=== PATIENT | female | born 1965 | race Caucasian/White ===

== ENCOUNTER 2016-10-18 08:54 | Inpatient (IN) | payer BC ==
[2016-10-10 11:46] LABS: ADD SCAN DIFF NO
[2016-10-10 12:03] LABS: ALBUMIN 4.3 g/dl (3.3-4.9)
[2016-10-10 12:04] LABS: POTASSIUM 4.7 mmol/L (3.5-5.1)
[2016-10-10 12:06] LABS: ALBUMIN/GLOBULIN RATIO 1.53; BILIRUBIN,INDIRECT 0.2 mg/dl (0-1.1); BILIRUBIN,TOTAL 0.2 mg/dl (0.2-1.3); TOTAL PROTEIN 7.1 g/dl (6.1-8.1)
[2016-10-10 12:07] LABS: ADD UMIC YES; URINE BILIRUBIN (Dip) NEGATIVE (NEGATIVE); URINE BLOOD (Dip) TRACE (NEGATIVE); URINE COLOR LT. YELLOW (YELLOW); URINE GLUCOSE (Dip) NEGATIVE (NEGATIVE); URINE KETONES (Dip) NEGATIVE (NEGATIVE); URINE LEUKOCYTE ESTERASE (Dip) TRACE (NEGATIVE); URINE NITRITE (Dip) NEGATIVE (NEGATIVE); URINE TOTAL PROTEIN (Dip) NEGATIVE (NEGATIVE); URINE UROBILINOGEN (Dip) 0.2 E.U./dL (0.1-1.0)
[2016-10-10 12:10] LABS: BASOPHIL # 0.1 10^3/ul (0.0-0.1); BASOPHILS % 1.3 % (0.0-2.0); EOSINOPHILS % 0.7 % (0.0-7.0); HEMATOCRIT 38.8 % (37.0-47.0); HEMOGLOBIN 12.6 g/dl (12.0-16.0); LYMPHOCYTES # 1.7 10^3/ul (0.8-2.9); LYMPHOCYTES % 31.1 % (15.0-51.0); MEAN CORPUSCULAR HEMOGLOBIN 29.9 pg (29.0-33.0); MEAN CORPUSCULAR HGB CONC 32.5 g/dl (32.0-37.0); MEAN CORPUSCULAR VOLUME 92.2 fl (82.0-101.0); MEAN PLATELET VOLUME 11.2 fl (7.4-10.4); MONOCYTE # 0.5 10^3/ul (0.3-0.9); MONOCYTES % 9.7 % (0.0-11.0); NEUTROPHIL # 3.1 10^3/ul (1.6-7.5); PLATELET COUNT 264 10^3/UL (140-415); RED BLOOD COUNT 4.21 10^6/ul (4.20-5.40); RED CELL DISTRIBUTION WIDTH 15.9 % (11.5-14.5); WHITE BLOOD COUNT 5.4 10^3/ul (4.8-10.8)
--- NOTE | 2016-10-10 12:11 | RADRPT ---
PROCEDURE: Chest x-ray CLINICAL INDICATION: Preop TECHNIQUE: Chest single view COMPARISON: None FINDINGS: The heart is normal in size. The pulmonary vessels are normal in caliber. The lungs are clear. Th e costophrenic angles are sharp. The visualized bony thorax is unremarkable. IMPRESSION: No acute cardiopulmonary disease. RPTAT: HH .Santos Ramirez MD, Date Time Electronically viewed and signed by .Santos Ramirez MD, MD on 10/10/2016 12:10 .W/
[2016-10-10 12:13] LABS: CALCIUM 9.2 mg/dl (8.4-10.2); CREATININE 0.73 mg/dl (0.44-1.00)
[2016-10-10 12:17] LABS: INR 0.96; PARTIAL THROMBOPLASTIN TIME 30.4 Sec (25.0-35.0); PROTIME 12.8 Sec (12.2-14.2)
[2016-10-10 12:49] LABS: SQUAMOUS EPITHELIAL CELL,UR FEW; URINE RBCS 0-2 /HPF (0)
--- NOTE | 2016-10-11 19:17 | RADRPT ---
Vent Rate: 50 bpm RR Interval: 0 msec NE Interval: 136 msec QRS Duration: 84 msec QT Interval: 426 msec QTC Interval: 388 msec P-R-T [place]: 62 - -5 - 63 degrees Sinus bradycardia Low voltage QRS Cannot rule out Anterior infarct , age undetermined Abnormal ECG Electronically Signed By: Jonh Tim [id number]
[2016-10-17 12:19] VITALS: BMI 22.3
[2016-10-18] VITALS (51 sets, daily range): BP systolic 81–138; BP diastolic 39–81; PULSE 54–78; RESP 11–41; Ht 162.6 cm; Wt 56.0 kg
[~2016-10-18] VITALS: Ht 162.6 cm; Wt 56.0 kg
[~2016-10-18 08:54] MED LIST: CEFAZOLIN 1 GM INJ ONE; ROCURONIUM 50 MG INJ ONE; SEVOFLURANE 15 MIN ONE
[2016-10-18] MEDS ORDERED: FENTAnyl 50 MCG/ML VIAL ONE (12:31)
[2016-10-18] MEDS ORDERED: MIDAZOLAM 1 MG/ML 2 ML INJ ONE (12:32)
--- NOTE | 2016-10-18 13:03 | HP ---
DATE OF ADMISSION: 10/18/2016 10/18/2016 HISTORY OF PRESENT ILLNESS: This is a 51-year-old female, 6 , para 5, with last menstrual period of 09/01/2016 admitted to [facility] with the chief complaint of lower abdominal, pelvic pressure, vaginal pressure, sensation of protruding mass through the vagina also at times loss of urine during exercise. coughing or other activities, being admitted to undergo a cystocele rectocele repair. Perineorrhaphy due to relaxed outlet and large cystocele and rectocele. She would undergo a rectocele repair as well. The entire procedure has been discussed with the patient and complication that may arise from this procedure, including bowel or bladder injury and she would like to proceed with the operation. This patient has been coming to [facility] as of 12/2010 and her last visit to the office has been on 08/2016 for the above-mentioned problems that brought the patient to the office for treatment. [employer] HISTORY: 6, para 5. Denies any other surgery or hospitalization. REVIEW OF SYSTEMS: Within normal. PHYSICAL EXAMINATION: VITAL SIGNS: 5 feet 3 inches, 126 pounds with a blood pressure of 102/76, pulse of 70, respiration of 20 and temperature 98.6. HEAD, EARS, NOSE AND THROAT: Negative. NECK: Supple. No thyromegaly. LUNGS: Clear to P and A. HEART: Normal sinus rhythm. No murmur. BREASTS: Bilateral breast implants (4 years ago) and the patient had no mammogram during the past 4 years, but there are no abnormal palpable mass in either breast. No skin changes except the scar of the surgery. No nipple discharge. No axillary adenopathy. ABDOMEN: Flat. No organomegaly. PELVIC: Relaxed vaginal outlet, moderate cystocele. Very large rectocele. Cervix multiparous. Uterus measures 8 x 6 x 4 cm. Adnexa not palpable. IMPRESSION: 1. Stress incontinence. 2 Pelvic and lower abdominal pressure. 3. Constipation. 4. Rectal pressure. 5. Moderate cystocele, large rectocele. PLAN: Repair of the cystocele and rectocele with [place] sphincter plication. The complication of the surgery has been discussed with the patient including bowel or bladder injury, possibility to be discharged with indwelling catheter , The other complication that may arise from this surgery is urinary tract infection, patient completely understood the complication of the procedure. All of her questions were answered and she has signed the consent for the above- mentioned surgery. Dictated By: HERRERA MURILLO/MARLON Conf#: [id number] DID#: [id number] MTDD
[2016-10-18] MEDS ORDERED: LIDOCAINE 2% (SDV) 5 ML INJ ONE (13:04)
[2016-10-18] MEDS ORDERED: SUCCINYLCHOLINE CHLORIDE 100 MG/5 ML SYG IV ONE (13:04)
[2016-10-18] MEDS ORDERED: PROPOFOL 20 ML ONE (13:04)
[2016-10-18] MEDS ORDERED: ONDANSETRON 4 MG INJ ONE (13:13)
[2016-10-18] MEDS ORDERED: EPHEDrine SULFATE 50 MG/5 ML SYG ONE (13:13)
[2016-10-18] MEDS ORDERED: DEXAMETHASONE 4 MG/ML 1 ML INJ ONE (13:14)
[2016-10-18] MEDS ORDERED: FAMOTIDINE 20 MG INJ ONE (13:14)
[2016-10-18] MEDS ORDERED: VASOPRESSIN 20 UNITS INJ ONE (13:27)
[2016-10-18] MEDS ORDERED: SODIUM CL BACTERIOSTATIC 30 ML INJ ONE (13:27)
[2016-10-18] MEDS ORDERED: HYDROmorphONE (0.2 MG/ML) 10ML SYG IV PRN ×3 (14:00)
[2016-10-18] MEDS ORDERED: FENTAnyl 50 MCG/ML VIAL IV PRN ×3 (14:00)
[2016-10-18] MEDS ORDERED: DIPHENHYDRAMINE 50 MG INJ IV PRN (14:00)
[2016-10-18] MEDS ORDERED: PROCHLORPERAZINE 10 MG INJ IV PRN (14:00)
[2016-10-18] MEDS ORDERED: ONDANSETRON 4 MG INJ IV PRN (14:00)
[2016-10-18] MEDS ORDERED: MEPERIDINE 25 MG INJ IV PRN (14:00)
[2016-10-18] MEDS ORDERED: NEOSTIGMINE 3 MG/3 ML SYRINGE ONE (14:05)
[2016-10-18] MEDS ORDERED: GLYCOPYRROLATE 0.4 MG INJ ONE (14:05)
[2016-10-18] MEDS ORDERED: HYDROmorphONE 2 MG/ML SYG ONE (14:05)
[2016-10-18] MEDS: IBUPROFEN 600 MG TAB PO SCH (18:00)
[2016-10-18] MEDS ORDERED: METOCLOPRAMIDE 10 MG INJ ONE (18:11)
[2016-10-18] MEDS ORDERED: HYDROmorphONE (0.2 MG/ML) 10ML SYG IV ONE (18:11)
[2016-10-18] MEDS ORDERED: METOCLOPRAMIDE 10 MG INJ IV PRN (18:30)
--- NOTE | 2016-10-18 20:16 | OPR ---
DATE OF OPERATION: PREOPERATIVE DIAGNOSES: Stress incontinence, moderate sized cystocele, large rectocele, relaxed vaginal outlet. POSTOPERATIVE DIAGNOSES: Stress incontinence, moderate sized cystocele, large rectocele, relaxed vaginal outlet. OPERATION PERFORMED: Cystocele and rectocele repair , perineorrhaphy SURGEON: Herrera Schwartz MD ANESTHESIA: General. ANESTHESIOLOGIST: ____ DETAILS OF THE PROCEDURE: Under satisfactory general anesthesia, the patient was prepped and draped and placed in lithotomy position. Bimanual pelvic examination revealed relaxed vaginal outlet, moderate to large cystocele, large rectocele with normal size uterus and not palpable adnexal masses. Weighted speculum introduced into the vagina. Anterior vaginal mucosa incised in the midline 1 cm below the urethra in the junction of the anterior vaginal mucosa to the cervix. Procedure for urethral plication done by placing 1 single 2-0 chromic catgut suture at the vesicourethral junction. Vesicovaginal mucosa developed on both sides of the midline. Cystocele reduced with pursestring 2-0 chromic catgut suture. Vesicovaginal fascia approximated and repaired with interrupted 2-0 chromic catgut. Excess vaginal mucosa was trimmed and anterior vaginal mucosa closed with interrupted 2-0 chromic catgut. For posterior repair , a transverse incision was made on the mucocutaneous junction of the perineum. Posterior vaginal mucosa incised in the midline to the dome of the rectocele. Rectovaginal fascia was developed on both sides. Rectocele reduced with pursestring 2-0 chromic catgut suture. Excess vaginal mucosa trimmed and posterior vaginal mucosa approximated and repaired with interrupted 2-0 chromic catgut. At the level of the perineum, levator ani approximated with 2 interrupted chromic catgut suture. Superficial perineal muscle approximated with 2 interrupted 0 chromic catgut and the perineal skin was closed with interrupted 4-0 chromic catgut. At the end of the procedure, Mills catheter # 18 was placed in the bladder and vagina packed with Xeroform packing. ESTIMATED BLOOD LOSS: 50 mL. The patient tolerated procedure well and transferred to recovery room in a good condition. Dictated By: HERRERA MURILLO/MARLON Conf#: [id number] DID#: [id number] [facility]
[2016-10-18] MEDS: OXYCODONE/ACETAMINOPHEN (5/325) TAB PO PRN (22:14)
[2016-10-19] VITALS: BP 82/48; PULSE 61; RESP 16
[2016-10-19] MEDS ORDERED: ONDANSETRON INJ 8 MG in DEXTROSE 5% 50 ML IV PRN ×2
[2016-10-19 01:00] VITALS: BP 85/52; PULSE 60; RESP 16
[2016-10-19 02:00] VITALS: BP 87/52; PULSE 57; RESP 16
[2016-10-19] MEDS: LACTATED RINGER'S 1,000 ML IV SCH ×4 (02:47→22:33)
[2016-10-19] MEDS: morphine 4 MG/ML VIAL IV PRN ×3 (02:48→12:53)
[2016-10-19 04:00] VITALS: BP 81/50; PULSE 55; RESP 16
[2016-10-19] MEDS: IBUPROFEN 600 MG TAB PO SCH ×4 (06:00→18:00)
[2016-10-19] MEDS ORDERED: CEFAZOLIN 2 GM/50 ML (PMX) 50 ML IVPB SCH (07:00)
[2016-10-19] MEDS: OXYCODONE/ACETAMINOPHEN (5/325) TAB PO PRN ×3 (08:35→21:08)
[2016-10-19 09:18] VITALS: BP 81/51; RESP 17
[2016-10-19] MEDS ORDERED: ONDANSETRON 4 MG INJ IV PRN (14:30)
[2016-10-19] MEDS ORDERED: INFLUENZA VIRUS VACCINE 0.5 ML SYG IM* ONE (15:00)
--- NOTE | 2016-10-19 19:08 | PN ---
Date/Time of Note Date/Time of Note DATE: 10/19/16 TIME: 19:05 OB Subjective Subjective Subjective Postop day 1 Afebrile vital signs are stable, resting in bed in no discomfort at the satisfied with pain medication, vaginal packing removal, Mills in place ambulation recommended Current Medications Medications (Trade) Dose Ordered Sig/Francheska Route PRN Reason Start Time Stop Time Status Last Admin Dose Admin Fentanyl (Sublimaze) 100 mcg STK-MED ONCE .ROUTE 10/18/16 12:31 10/18/16 12:32 DC Midazolam HCl 2 mg 2 mg STK-MED ONCE .ROUTE 10/18/16 12:32 10/18/16 12:33 DC Propofol (Diprivan) 20 ml @ ud STK-MED ONCE .ROUTE 10/18/16 13:04 10/18/16 13:05 DC Succinylcholine Chloride (Anectine Syringe) 100 mg STK-MED ONCE IV 10/18/16 13:04 10/18/16 13:05 DC Lidocaine (Xylocaine 2% (Sdv)) 100 mg STK-MED ONCE .ROUTE 10/18/16 13:04 10/18/16 13:05 DC Ephedrine Sulfate 50 mg STK-MED ONCE .ROUTE 10/18/16 13:13 10/18/16 13:14 DC Ondansetron HCl (Zofran Inj) 4 mg STK-MED ONCE .ROUTE 10/18/16 13:13 10/18/16 13:14 DC Dexamethasone (Decadron) 4 mg STK-MED ONCE .ROUTE 10/18/16 13:14 10/18/16 13:15 DC Famotidine (Pepcid Iv) 20 mg STK-MED ONCE .ROUTE 10/18/16 13:14 10/18/16 13:15 DC Sodium Chloride (Sodium Cl Bacteriostatic) 90 ml STK-MED ONCE .ROUTE 10/18/16 13:27 10/18/16 13:28 DC 10/18/16 13:38 Vasopressin (Pitressin) 20 unit STK-MED ONCE .ROUTE 10/18/16 13:27 10/18/16 13:28 DC 10/18/16 13:37 Hydromorphone HCl (Dilaudid (Rec)) 0.2 mg PACU ORDER PRN IV MILD PAIN LEVEL 1-3 10/18/16 14:00 10/18/16 22:00 DC Hydromorphone HCl (Dilaudid (Rec)) 0.4 mg PACU ORDER PRN IV MODERATE PAIN LEVEL 4-6 10/18/16 14:00 10/18/16 22:00 DC 10/18/16 18:29 Hydromorphone HCl (Dilaudid (Rec)) 0.6 mg PACU ORDER PRN IV SEVERE PAIN LEVEL 7-10 10/18/16 14:00 10/18/16 22:00 DC Fentanyl (Sublimaze) 25 mcg PACU ORDER PRN IV MILD PAIN LEVEL 1-3 10/18/16 14:00 10/18/16 22:00 DC Fentanyl (Sublimaze) 50 mcg PACU ODER PRN IV MODERATE PAIN LEVEL 4-6 10/18/16 14:00 10/18/16 22:00 DC Fentanyl (Sublimaze) 75 mcg PACU ORDER PRN IV SEVERE PAIN LEVEL 7-10 10/18/16 14:00 10/18/16 22:00 DC Ondansetron HCl (Zofran Inj) 4 mg PACU ORDER PRN IV NAUSEA AND/OR VOMITING 10/18/16 14:00 10/18/16 22:00 DC 10/18/16 17:35 Prochlorperazine (Compazine Inj) 5 mg PACU ORDER PRN IV NAUSEA AND/OR VOMITING 10/18/16 14:00 10/18/16 22:00 DC Meperidine HCl (Demerol) 25 mg PACU ORDER PRN IV POST-OP RIGORS 10/18/16 14:00 10/18/16 22:00 DC Diphenhydramine HCl (Benadryl) 25 mg PACU ORDER PRN IV PRURITUS 10/18/16 14:00 10/18/16 22:00 DC Neostigmine Methylsulfate (Neostigmine) 3 mg STK-MED ONCE .ROUTE 10/18/16 14:05 10/18/16 14:06 DC Glycopyrrolate (Robinul) 0.4 mg STK-MED ONCE .ROUTE 10/18/16 14:05 10/18/16 14:06 DC Hydromorphone HCl 2 mg 2 mg STK-MED ONCE .ROUTE 10/18/16 14:05 10/18/16 14:06 DC Cefazolin Sodium/ Dextrose (Ancef 2 Gm/50 ml (Pmx)) 50 ml @ 100 mls/hr AC BREAKFAST IVPB 10/19/16 07:00 10/19/16 07:19 DC 10/19/16 06:41 Ibuprofen (Motrin) 600 mg Q6 PO 10/18/16 18:00 Oxycodone/ Acetaminophen (Percocet (5/ 325)) 1 tab Q3H PRN PO pain 10/18/16 15:30 10/19/16 16:48 Hydromorphone HCl (Dilaudid (Rec)) 2 mg STK-MED ONCE IV 10/18/16 18:11 10/18/16 18:12 DC Metoclopramide HCl (Reglan) 10 mg STK-MED ONCE .ROUTE 10/18/16 18:11 10/18/16 18:12 DC Metoclopramide HCl 10 mg 10 mg PACU ORDER PRN IV NAUSEA AND/OR VOMITING 10/18/16 18:30 10/18/16 22:00 DC 10/18/16 18:30 Ondansetron HCl/ Dextrose (Zofran Inj/D5W) 54 ml @ 108 mls/hr NOW PRN IV NAUSEA AND/OR VOMITING 10/19/16 00:00 10/20/16 00:00 10/19/16 00:36 Morphine Sulfate 3 mg 3 mg Q3H PRN IV PAIN 10/19/16 03:00 10/19/16 12:53 Lactated Ringer's (Lr) 1,000 ml @ 125 mls/hr Q8H IV 10/19/16 03:00 10/19/16 12:54 Influenza Virus Vaccine (Fluzone) 0.5 ml ONCE ONCE IM* 10/19/16 15:00 10/19/16 15:01 DC Ondansetron HCl (Zofran Inj) 4 mg Q6H PRN IV NAUSEA AND/OR VOMITING 10/19/16 14:30 10/19/16 14:29 Sevoflurane (Ultane) 120 min STK-MED ONCE .ROUTE 10/18/16 07:00 10/19/16 18:13 DC Rocuronium [place] (Zemuron) 50 mg STK-MED ONCE .ROUTE 10/18/16 07:00 3/23/17 18:13 DC Cefazolin Sodium (Ancef) 2 gm STK-MED ONCE .ROUTE 10/18/16 07:00 10/19/16 18:13 DC HERRERA CRUZ MD Oct 19, 2016 19:08
[2016-10-19 21:14] VITALS: BP_SYST 104; BP_SYST 108; BP_DIAS 49; BP_DIAS 53; RESP 20
[2016-10-20] MEDS: OXYCODONE/ACETAMINOPHEN (5/325) TAB PO PRN ×3 (02:36→11:57)
[2016-10-20] MEDS: LACTATED RINGER'S 1,000 ML IV SCH ×2 (03:00→11:00)
[2016-10-20] MEDS: IBUPROFEN 600 MG TAB PO SCH ×2 (05:54)
[2016-10-20 08:36] VITALS: BP 112/56; RESP 14
--- NOTE | 2016-10-20 13:08 | QN ---
Documentation Comment Under satisfactory general anesthesia patient prepped and draped and placed in lithotomy position, pelvic examination, relaxed vaginal outlet moderate to large cystocele, large rectocele uterus normal size adnexa not palpable Weighted speculum placed in the vagina; anterior vaginal mucosa incised from 1 cm below the urethra incised in the midline to the junction of the anterior vaginal mucosa to the cervix, for urethral plication single 2-0 chromic catgut suture placed in vesicle urethral junction then vesicovaginal fascia was developed on both side of the midline; cystocele reduced with a pursestring 2-0 chromic catgut suture, vesicovaginal fascia approximated with interrupted 2-0 chromic catgut excess vaginal mucosa trimmed, approximated and closed with interrupted 2-0 chromic catgut. Posterior repair Transverse incision was made on mucocutaneous junction posterior vaginal mucosa incised in midline to the dome of rectocele, rectovaginal fascia developed on both side of the mid line, rectocele reduced with purse string 2-0 chromic catgut suture excess vaginal mucosa trimmed and posterior vaginal mucosa approximated and repaired with interrupted 2-0 chromic catgut, levator ani approximated with 2 interrupted chromic 1 catgut suture. Superficial peroneal muscle approximated with 2 interrupted 0 chromic catgut and perineorrhaphy performed in the usual fashion using 4-0 chromic catgut At the end of procedure Mills catheter #18 was placed in the bladder, and vagina packed with Xeroform packing, estimated blood loss less than 50 cc patient tolerated procedure well transferred to recovery room in a good condition HERRERA CRUZ MD Oct 18, 2016 19:16
--- NOTE | 2016-10-20 13:14 | DS ---
Date/Time of Note Date/Time of Note DATE: 10/20/16 TIME: 13:08 Discharge Summary Admission/Discharge Info Admit Date/Time Oct 18, 2016 at 15:19 Discharge Date/Time October 20, 2006 at 1310 Final Diagnosis Repair of cystocele and rectocele, [place] sphincter plication, perineorrhaphy Patient Condition: Good Procedures Cystorectocele repair with perineorrhaphy Hx of Present Illness Pelvic pressure relaxed vaginal outlet cystocele rectocele Hospital Course Patient postoperative course in the hospital was uneventful on on the day of discharge [place] catheter was removed patient urinated normal urine residual measured after the second void there was 60 cc patient discharged home with follow-up instructions and a prescription of analgesics recommended appointment to the office in 2 weeks. Home Meds No Active Prescriptions or Reported Meds Follow-up Plan Advised to make appointment for postoperative check in 2 weeks HERRERA CRUZ MD Oct 20, 2016 13:14
== END 2016-10-20 14:30 | disposition home or self-care (01) | DRG 748 ==
LOC: SDS 08:54 → MS1 15:19 → SDS 15:19 → MS1 19:55
PROVIDERS: ADMIT Obstetrics & Gynecology; ATTEND Obstetrics & Gynecology
PROC: 0TV Urinary System, Restriction (ICD-10-PCS; 2016-10-18)
PROC: 0WQNXZZ Repair Female Perineum, External Approach (ICD-10-PCS; 2016-10-18)
PROC: 0JQC3ZZ Repair Pelvic Region Subcutaneous Tissue and Fascia, Percutaneous Approach (ICD-10-PCS; principal; 2016-10-18 12:00)
DX: N81.11 Cystocele, midline (principal); N39.3 Stress incontinence (female) (male); N81.6 Rectocele
CPT/HCPCS: 71010; 80053; 81001; 81003; 84703; 85025; 85610; 85730; 86850; 86900; 86901; 87086; 90686; 93005; J0330; J0690; J1100; J1170; J2250; J2270; J2405; J2710; J2765; J3010; J7120